=== PATIENT | female | born 1990 | race Caucasian/White ===

== ENCOUNTER 2022-09-26 08:19 | Outpatient (CLI) | payer BC, SELFPAY ==
--- NOTE | ~2022-09-26 | MR_ITS ---
EXAMINATION: MR foot LT wo con DATE: 09/26/2022 09:15 INDICATION: Left foot pain TECHNIQUE: Magnetic resonance imaging (MRI) of the left fore/mid foot was performed without intraveno us contrast. A marker was placed over the site of maximal pain as indicated by the patient. Sequences included sagittal T1-weighted FSE, sagittal fluid sensitive FSE STIR, coronal PD-weighted FS FSE, co hilary T1-weighted FSE, axial PD-weighted FS FSE, and axial PD-weighted FSE. COMPARISON: None FINDINGS: Marker indicating site of maximal pain is located dorsal to the webspace between the fourth and fifth metatarsophalangeal joints. Bone alignment is normal. Normal marrow signal throughout with no reacti ve edema, fracture or pathologic marrow replacing process. Joint spaces are normal with no appreciabl e osteoarthritis or erosions to suggest inflammatory arthritis. Physiologic amount of fluid in the christophe int spaces. No bursitis, tenosynovitis or other abnormal fluid collections. The visualized portion of the flexor and extensor tendons are normal. The Lisfranc ligament complex is normal. There is mild t hickening and mild increased signal of the medial trochlea collateral ligament at the fifth metatarso phalangeal joint without significant surrounding edema suggesting mild scarring related to chronic sp rain/partial tear. The associated accessory collateral ligament appears to remain normal. Small linea r cleft of fluid signal situated between the medial collateral ligament complex and the extensor tend on which could represent a tear of the medial side of the sagittal band of the fifth metatarsophalang eal joint although this is only seen on a single image, series 7, image 22 and appearance may be zulay fact of volume averaging. The collateral ligament complexes at the remaining metatarsophalangeal as w ell as at the interphalangeal joints are normal. The visualized intrinsic musculature of the foot is unremarkable. IMPRESSION: 1. Likely chronic sprain/partial tear of the proper medial collateral ligament of the fifth metatarso phalangeal joint with possible associated infiltrate the medial side of the sagittal band. Reviewed, dictated and finalized at location A. TRAINER IMPRESSION: 1. Likely chronic sprain/partial tear of the proper medial collateral ligament of the fifth metatarsophalangeal joint with possible associated infiltrate the medial side of the sagittal band.
== END 2022-09-26 08:20 | disposition home or self-care (01) ==
LOC: ANHIMG 08:25
PROVIDERS: Visit Provider Orthopaedic Surgery
DX: M25.572 Pain in left ankle and joints of left foot (principal); R93.6 Abnormal findings on diagnostic imaging of limbs
CPT/HCPCS: 73718